=== PATIENT | female | born 1980 | race Caucasian/White ===

== ENCOUNTER → 2016-06-07 | Outpatient (CLI) | payer BC | LOC: BHSO 15:52 | DX: F31.81 Bipolar II disorder (principal) ==

== ENCOUNTER → 2016-06-12 | Outpatient (CLI) | payer BC | LOC: BHSO 16:10 | DX: F31.81 Bipolar II disorder (principal) ==

== ENCOUNTER → 2016-06-21 | Outpatient (CLI) | payer BC | LOC: BHSO 15:50 | DX: F31.81 Bipolar II disorder (principal) ==

== ENCOUNTER → 2016-07-05 | Outpatient (CLI) | payer BC | LOC: BHSO 15:49 | DX: F31.81 Bipolar II disorder (principal) ==

== ENCOUNTER → 2016-07-19 | Outpatient (CLI) | payer BC | LOC: BHSO 15:48 | DX: F31.81 Bipolar II disorder (principal) ==

== ENCOUNTER → 2016-08-02 | Outpatient (CLI) | payer BC | LOC: BHSO 15:43 | DX: F31.81 Bipolar II disorder (principal) ==

== ENCOUNTER → 2016-09-06 | Outpatient (CLI) | payer BC, OTHER | LOC: BHSO 15:53 | DX: F31.81 Bipolar II disorder (principal) ==

== ENCOUNTER → 2016-09-20 | Outpatient (CLI) | payer BC, OTHER | LOC: BHSO 15:50 | DX: F31.81 Bipolar II disorder (principal) ==

== ENCOUNTER → 2016-10-12 | Outpatient (CLI) | payer BC | LOC: BHSO 15:43 | DX: F31.81 Bipolar II disorder (principal) ==

== ENCOUNTER → 2016-11-15 | Outpatient (CLI) | payer BC | LOC: BHSO 15:59 | DX: F31.81 Bipolar II disorder (principal) ==

== ENCOUNTER → 2016-11-24 | Outpatient (CLI) | payer BC | LOC: BHSO 14:04 | DX: F31.81 Bipolar II disorder (principal) ==

== ENCOUNTER → 2016-12-20 | Outpatient (CLI) | payer BC | LOC: BHSO 15:47 | DX: F31.81 Bipolar II disorder (principal) ==

== ENCOUNTER → 2017-01-17 | Outpatient (CLI) | payer BC | LOC: BHSO 15:53 | DX: F31.81 Bipolar II disorder (principal) ==

== ENCOUNTER → 2017-02-13 | Outpatient (CLI) | payer BC | LOC: BHSO 10:48 | DX: F31.31 Bipolar disorder, current episode depressed, mild (principal) ==

== ENCOUNTER → 2017-03-06 | Outpatient (CLI) | payer BC | LOC: BHSO 13:56 | DX: F31.81 Bipolar II disorder (principal) ==

== ENCOUNTER → 2017-04-10 | Outpatient (CLI) | payer BC | LOC: BHSO 13:51 | DX: F31.81 Bipolar II disorder (principal) ==

== ENCOUNTER → 2017-04-17 | Outpatient (CLI) | payer BC | LOC: BHSO 13:32 | DX: F41.1 Generalized anxiety disorder (principal) ==

== ENCOUNTER → 2017-11-21 | Outpatient (CLI) | payer BC | LOC: BHSO 08:22 | DX: F33.42 Major depressive disorder, recurrent, in full remission (principal) | CPT/HCPCS: G0463 ==

== ENCOUNTER → 2018-02-28 | Outpatient (CLI) | payer BC | LOC: BHSO 11:05 | DX: F31.81 Bipolar II disorder (principal) ==

== ENCOUNTER → 2018-03-11 | Outpatient (CLI) | payer BC | LOC: BHSO 10:54 | DX: F31.81 Bipolar II disorder (principal) ==

== ENCOUNTER → 2018-05-22 | Outpatient (CLI) | payer BC | LOC: BHSO 08:17 | DX: F33.42 Major depressive disorder, recurrent, in full remission (principal) | CPT/HCPCS: G0463 ==

== ENCOUNTER → 2018-08-12 | Outpatient (CLI) | payer BC | LOC: BHSO 10:57 | DX: F31.81 Bipolar II disorder (principal) ==

== ENCOUNTER → 2018-08-19 | Outpatient (CLI) | payer BC | LOC: BHSO 14:54 | DX: F31.81 Bipolar II disorder (principal) | CPT/HCPCS: G0463 ==

== ENCOUNTER → 2018-08-29 | Outpatient (CLI) | payer BC | LOC: BHSO 10:56 | DX: F33.41 Major depressive disorder, recurrent, in partial remission (principal) | CPT/HCPCS: G0463 ==

== ENCOUNTER → 2018-09-02 | Outpatient (CLI) | payer BC | LOC: BHSO 11:05 | DX: F31.11 Bipolar disorder, current episode manic without psychotic features, mild (principal) ==

== ENCOUNTER → 2018-09-16 | Outpatient (CLI) | payer BC | LOC: BHSO 14:50 | DX: F31.81 Bipolar II disorder (principal) ==

== ENCOUNTER → 2018-09-30 | Outpatient (CLI) | payer BC | LOC: BHSO 15:50 | DX: F31.81 Bipolar II disorder (principal) ==

== ENCOUNTER → 2018-10-14 | Outpatient (CLI) | payer BC | LOC: BHSO 15:49 | DX: F31.81 Bipolar II disorder (principal) ==

== ENCOUNTER → 2018-10-29 | Outpatient (CLI) | payer BC | LOC: BHSO 14:54 | DX: F31.81 Bipolar II disorder (principal) ==

== ENCOUNTER → 2018-10-30 | Outpatient (CLI) | payer BC | LOC: BHSO 07:57 | DX: F33.42 Major depressive disorder, recurrent, in full remission (principal) | CPT/HCPCS: G0463 ==

== ENCOUNTER → 2018-12-10 | Outpatient (CLI) | payer BC | LOC: BHSO 15:43 | DX: F31.81 Bipolar II disorder (principal) ==

== ENCOUNTER → 2019-02-13 | Outpatient (CLI) | payer BC | LOC: BHSO 15:56 | DX: F31.81 Bipolar II disorder (principal) ==

== ENCOUNTER → 2019-06-17 | Outpatient (CLI) | payer BC | LOC: BHSO 13:50 | DX: F31.81 Bipolar II disorder (principal) ==

== ENCOUNTER → 2019-07-03 | Outpatient (CLI) | payer BC | LOC: BHSO 10:55 | DX: F31.81 Bipolar II disorder (principal) ==

== ENCOUNTER → 2019-07-31 | Outpatient (CLI) | payer BC | LOC: BHSO 10:47 | DX: F31.81 Bipolar II disorder (principal) ==

== ENCOUNTER → 2019-08-19 | Outpatient (CLI) | payer BC | LOC: BHSO 09:52 | DX: F31.81 Bipolar II disorder (principal) ==

== ENCOUNTER → 2019-10-28 | Outpatient (CLI) | payer BC | LOC: BHSO 09:59 | DX: F31.81 Bipolar II disorder (principal) ==

== ENCOUNTER → 2019-10-28 | Outpatient (CLI) | payer BC | LOC: MC.RAD 17:55 | DX: Z12.31 Encounter for screening mammogram for malignant neoplasm of breast (principal) ==

== ENCOUNTER → 2019-11-11 | Outpatient (CLI) | payer BC | LOC: BHSO 10:01 | DX: F31.81 Bipolar II disorder (principal) ==

== ENCOUNTER → 2019-12-09 | Outpatient (CLI) | payer BC | LOC: BHSO 09:54 | DX: F31.81 Bipolar II disorder (principal) ==

== ENCOUNTER → 2019-12-30 | Outpatient (CLI) | payer BC | LOC: BHSO 09:54 | DX: F31.81 Bipolar II disorder (principal) ==

== ENCOUNTER → 2020-01-14 | Outpatient (CLI) | payer BC | LOC: BHSO 15:52 | DX: F31.81 Bipolar II disorder (principal) ==

== ENCOUNTER → 2020-02-16 | Outpatient (CLI) | payer BC | LOC: BHSO 14:51 | DX: F31.81 Bipolar II disorder (principal) ==

== ENCOUNTER → 2020-03-01 | Outpatient (CLI) | payer BC | LOC: BHSO 15:54 | DX: F31.81 Bipolar II disorder (principal) ==

== ENCOUNTER → 2020-03-15 | Outpatient (CLI) | payer BC | LOC: BHSO 14:57 | DX: F31.81 Bipolar II disorder (principal) ==

== ENCOUNTER → 2020-11-30 | Outpatient (CLI) | payer BC | LOC: MC.RAD 11:16 | DX: Z12.31 Encounter for screening mammogram for malignant neoplasm of breast (principal) ==

== ENCOUNTER → 2021-12-30 | Outpatient (CLI) | payer BC | LOC: MC.RAD 11:11 | DX: Z12.31 Encounter for screening mammogram for malignant neoplasm of breast (principal) ==

== ENCOUNTER 2022-01-03 09:03 | Emergency (ER) | payer BC ==
[~2022-01-03] VITALS: Ht 165.1 cm; Wt 79.5 kg
[2022-01-03 09:13] VITALS: TEMP 98
[2022-01-03 09:49] LABS: BASO # 0.1 K/mm3 (0.0-0.2); BASO % 1.1 % (0.0-2.0); EOS # 0.3 K/mm3 (0.0-0.7); EOS % 4.1 % (0.0-4.0); GRAN # 3.5 K/mm3 (1.4-6.5); GRAN % 52.1 % (42.2-75.2); HEMATOCRIT 38.3 % (37.0-47.0); HEMOGLOBIN 12.4 g/dl (12.5-16.0); LYMPH # 2.4 K/mm3 (1.2-3.4); LYMPH % 35.7 % (20.0-51.0); MEAN CELL VOLUME 93 fl (80.0-100.0); MEAN CORPUSCULAR HEMOGLOBIN 30 pg (27-31); MEAN CORPUSCULAR HGB CONC 32 g/dl (33.0-37.0); MEAN PLATELET VOLUME 9.6 fl (7.4-10.4); MONO # 0.5 K/mm3 (0.1-0.6); MONO % 6.8 % (1.7-9.3); PLATELET COUNT 409 K/mm3 (130-400); RED BLOOD COUNT 4.13 M/mm3 (4.10-5.30); REDCELL DISTRIBUTION WIDTH-CV 13.2 % (11.5-14.5)
[2022-01-03 10:05] LABS: ALBUMIN 3.4 gm/dL (3.5-5.0); BILIRUBIN,TOTAL 0.2 mg/dL (0.2-1.2); CALCIUM 8.9 mg/dL (8.4-10.2); CREATININE, serum 1.07 mg/dL (0.57-1.11); POTASSIUM 3.9 mmol/L (3.5-4.5); TOTAL PROTEIN 6.2 gm/dL (6.2-8.1)
[2022-01-03 11:37] LABS: COLLECTION METHOD CLEAN CATCH
[2022-01-03 11:43] LABS: PH 7 (5-8); SQUAMOUS EPITHELIAL 0-2 /hpf (0-10); URINE APPEARANCE Clear (CLEAR/HAZY); URINE BACTERIA Rare /hpf (NONE SEEN); URINE BLOOD Negative (NEGATIVE); URINE COLOR Straw (YELLOW); URINE GLUCOSE Negative (NEGATIVE); URINE KETONE Negative (NEGATIVE); URINE NITRATE Negative (NEGATIVE); URINE PROTEIN(semi-quant) Negative (NEGATIVE); URINE RBC 0-2 /hpf (0-2); URINE UROBILINOGEN Negative (NEGATIVE)
[2022-01-03 11:50] LABS: TRICYCLIC ANTIDEPRESS URINE NEGATIVE
[2022-01-03 12:23] VITALS: BP 108/77; PULSE 79
== END 2022-01-03 12:26 | disposition home or self-care (01) ==
LOC: COL.ER 09:03
PROVIDERS: Family Medicine
DX: R51.9 Headache, unspecified (principal); T50.995A Adverse effect of other drugs, medicaments and biological substances, initial encounter; Z87.891 Personal history of nicotine dependence; Z32.02 Encounter for pregnancy test, result negative
CPT/HCPCS: J7030

== ENCOUNTER → 2024-03-25 | Outpatient (CLI) | payer BC | LOC: MC.RAD 13:19 | DX: Z12.31 Encounter for screening mammogram for malignant neoplasm of breast (principal); Z12.4 Encounter for screening for malignant neoplasm of cervix ==